=== PATIENT | male | born 1950 | race Caucasian/White ===

== ENCOUNTER → 2020-11-19 | Outpatient (CLI) | payer OTHER | LOC: LAB SHORT 12:20 | DX: R35.0 Frequency of micturition (principal); N39.41 Urge incontinence | CPT/HCPCS: 87086 ==

== ENCOUNTER 2021-01-31 22:24 | Observation (INO) | payer OTHER, MEDICARE ==
[~2021-01-31] VITALS: Ht 175.3 cm; Wt 123.5 kg
[2021-01-31 23:13] LABS: BASOPHILS ABSOLUTE AUTO 0.06 K/mm3 (0.00-0.23); BASOPHILS PERCENT AUTO 1 % (0-2); EOSINOPHILS ABSOLUTE AUTO 0.12 K/mm3 (0.00-0.68); EOSINOPHILS PERCENT AUTO 1 % (0-6); Hematocrit 48.2 % (37.0-53.0); Hemoglobin 16.9 g/dL (13.5-17.5); IMMATURE GRAN ABSOLUTE AUTO 0.02 K/mm3 (0.00-0.10); IMMATURE GRAN PERCENT AUTO 0 % (0-1); LYMPHOCYTES ABSOLUTE AUTO 3.32 K/mm3 (0.84-5.20); LYMPHOCYTES PERCENT AUTO 38 % (21-46); MONOCYTES ABSOLUTE AUTO 1.26 K/mm3 (0.16-1.47); MONOCYTES PERCENT AUTO 15 % (4-13); Mean Corpuscular HGB 30.1 pg (26.0-34.0); Mean Corpuscular HGB Conc 35.1 g/dL (31.5-36.5); Mean Corpuscular Volume 86 fL (80-100); Mean Platelet Volume 9.6 fL (9.1-12.4); NEUTROPHILS ABSOLUTE AUTO 3.91 K/mm3 (1.96-9.15); NEUTROPHILS PERCENT AUTO 45 % (41-73); Platelet Count 246 K/mm3 (150-400); RDW Coefficient Variation 12.7 % (11.7-14.2); RDW Standard Deviation 39.5 fL (35.1-46.3); Red Blood Cell Count 5.62 M/mm3 (4.30-5.90); White Blood Cell Count 8.69 K/mm3 (4.00-11.30)
[2021-01-31 23:35] LABS: Albumin, Blood 3.7 g/dL (3.4-5.0); Bilirubin, Total 0.6 mg/dL (0.1-1.0); Bun/Creatinine Ratio 17.5 (12.0-20.0); Creatinine, Blood 1.26 mg/dL (0.60-1.20); Globulin, Blood 3.7 g/dL (2.2-4.0); Potassium, Blood 3.8 mmol/L (3.5-5.5); Total Protein, Blood 7.4 g/dL (6.4-8.2); Troponin I 0.019 ng/mL (0.000-0.040)
[2021-02-01] MEDS ORDERED: ATOR20 PO (00:06)
[2021-02-01] MEDS ORDERED: OXYB5 PO (00:06)
[2021-02-01] MEDS ORDERED: CLOP75 PO (00:07)
[2021-02-01] MEDS ORDERED: BUPR100 PO (00:08)
[2021-02-01] MEDS ORDERED: TRIA50 PO (00:09)
[2021-02-01] MEDS ORDERED: LEVSOD100 PO (00:09)
[2021-02-01] MEDS ORDERED: LOSA25 PO (00:10)
[2021-02-01 01:39] LABS: Source, Urine Clean Catch
[2021-02-01 01:42] LABS: Bilirubin, Urine Neg (Neg); Blood, Urine 1+ (Neg); Glucose Qualitative, Urine Neg (Neg); Ketones, Urine Neg (Neg); Leukocyte Esterase, Urine Neg (Neg); Nitrite, Urine Neg (Neg); Protein, Urine 1+ (Neg); Urobilinogen, Urine NORM (Normal); pH, Urine 6.5 (5.0-8.0)
[2021-02-01 01:45] LABS: Free Thyroxine 1.1 ng/dL (0.70-1.60); Magnesium, Blood 2.3 mg/dL (1.6-2.4); Thyroid Stimulating Hormone 5.23 uIU/mL (0.360-4.800); Troponin I 0.022 ng/mL (0.000-0.040)
[2021-02-01 01:59] LABS: Creatine Kinase MB 5.4 ng/mL (0.0-3.6); Creatine Kinase MB Index 1.3 (0.0-4.0)
[2021-02-01 02:04] LABS: Appearance, Urine Clear (Clear); Color, Urine Pale Yellow (P-Yellow)
[2021-02-01 02:05] LABS: Bacteria Not Seen /hpf; Red Blood Cells, Urine 0-2 /hpf (0-2); Squamous Epithelial Cells Not Seen /hpf (Few); White Blood Cells, Urine Rare /hpf (0-5)
--- NOTE | 2021-02-01 03:21 | NUR ---
SHIFT SUMMARY PT ARRIVED TO PCU FROM ED AT APPROX 0125. PT AMBULATED INDEPENDENTLY FROM ED STRETCHER TO PCU BED. PT A&OX4. SP02>92% ON RA. PT STATES HE WEARS CPAP AT NIGHT. TELEMETRY READS AFIB, HR 100'S. PT AMBULATED DURING ASSESSMENT TO BATHROOM, SBA, TO VOID. PT DENIES PAIN. PT WAS ACCOMPANIED BY SON TO ROOM. PT ORIENTED TO ROOM AND CALL LIGHT. CALL LIGHT IN REACH. BED IN LOW POSITION.
[2021-02-01 04:02] LABS: BASOPHILS ABSOLUTE AUTO 0.06 K/mm3 (0.00-0.23); BASOPHILS PERCENT AUTO 1 % (0-2); EOSINOPHILS ABSOLUTE AUTO 0.11 K/mm3 (0.00-0.68); EOSINOPHILS PERCENT AUTO 1 % (0-6); Hematocrit 49.4 % (37.0-53.0); Hemoglobin 17.5 g/dL (13.5-17.5); IMMATURE GRAN ABSOLUTE AUTO 0.03 K/mm3 (0.00-0.10); IMMATURE GRAN PERCENT AUTO 0 % (0-1); LYMPHOCYTES ABSOLUTE AUTO 3.48 K/mm3 (0.84-5.20); LYMPHOCYTES PERCENT AUTO 36 % (21-46); MONOCYTES ABSOLUTE AUTO 1.09 K/mm3 (0.16-1.47); MONOCYTES PERCENT AUTO 11 % (4-13); Mean Corpuscular HGB 30.5 pg (26.0-34.0); Mean Corpuscular HGB Conc 35.4 g/dL (31.5-36.5); Mean Corpuscular Volume 86 fL (80-100); Mean Platelet Volume 9.9 fL (9.1-12.4); NEUTROPHILS ABSOLUTE AUTO 4.84 K/mm3 (1.96-9.15); NEUTROPHILS PERCENT AUTO 51 % (41-73); Platelet Count 255 K/mm3 (150-400); RDW Coefficient Variation 12.8 % (11.7-14.2); RDW Standard Deviation 39.8 fL (35.1-46.3); Red Blood Cell Count 5.73 M/mm3 (4.30-5.90); White Blood Cell Count 9.61 K/mm3 (4.00-11.30)
[2021-02-01 04:35] LABS: Alanine Aminotransfer (ALT/SGP 52 U/L (12-78); Albumin, Blood 3.6 g/dL (3.4-5.0); Albumin/Globulin Ratio 0.9 (0.8-1.8); Alk Phos 72 U/L (50-136); Anion Gap 9 mmol/L (6-16); Aspartate Aminotrans (AST/SGOT 37 U/L (12-37); Bilirubin, Total 0.7 mg/dL (0.1-1.0); Blood Urea Nitrogen 19 mg/dL (8-24); Bun/Creatinine Ratio 16.5 (12.0-20.0); CO2, Blood 24 mmol/L (21-32); Calcium, Blood 8.9 mg/dL (8.5-10.1); Chloride, Blood 109 mmol/L (98-108); Creatinine, Blood 1.15 mg/dL (0.60-1.20); Globulin, Blood 3.8 g/dL (2.2-4.0); Glomerular Filtration Rate >60 (60-); Glucose, Blood 79 mg/dL (70-99); Potassium, Blood 3.9 mmol/L (3.5-5.5); Sodium, Blood 142 mmol/L (136-145); Total Protein, Blood 7.4 g/dL (6.4-8.2)
--- NOTE | 2021-02-01 06:14 | NUR ---
SHIFT SUMMARY PT A&OX4. SP02>92% ON RA. PT WORE CPAP FOR APPROX 1 HR THIS EVENING BEFORE REFUSING IT. PT STATES "ITS TOO LOUD". TELEMETRY READS AFIB, HR 80'S-100'S. PT UP TO BATHROOM X2 TO VOID THIS SHIFT, USED URINAL X1. PT DENIES PAIN. POTASSIUM BEGAN INFUSING W/ NS THIS SHIFT, PT C/O OF "ACHING". REQUESTED IV TO STOP. PT STATES, "IF I NEED POTASSIUM, ILL EAT A BANANA." PT DID NOT SLEEP MUCH DURING NIGHT, WATCHING TV AND RESTING IN ROOM. CALL LIGHT IN REACH. WILL GIVE REPORT TO ONCOMING NURSE.
--- NOTE | 2021-02-01 08:53 | NUR ---
PHYSICIAN AT BEDSIDE PHYSICIAN TO D/C PT PENDING ECHO. ORDERS FOR CONSULT AT [facility] POST D/C TO BE PUT IN PER PHYSICIAN.
[2021-02-01 09:17] LABS: Troponin I 0.017 ng/mL (0.000-0.040)
[2021-02-01 09:30] LABS: Creatine Kinase MB 5.4 ng/mL (0.0-3.6); Creatine Kinase MB Index 1.6 (0.0-4.0)
--- NOTE | 2021-02-01 10:58 | NUR ---
PT REFUSAL PT REFUSING TO WEAR TELEMETRY PATCHES AT THIS TIME.
--- NOTE | 2021-02-01 11:11 | NUR ---
Echocardiogram completed.
[2021-02-01] MEDS ORDERED: Lopressor 50 mg50 MG PO (12:55)
[2021-02-01] MEDS ORDERED: XARELTO20 MG PO (12:57)
--- NOTE | 2021-02-01 13:41 | NUR ---
PT DISCHARGE PT DISCHARGED PER PHYSICIAN INSTRUCTION. PT PROVIDED WITH DISHCARGE INSTRUCTION WITH DAUGHTER ON PHONE WELL. PT AND DAUGHTER VERBALIZE UNDERSTANDING REGARDING APT'S TO BE MADE AND MEDICATION INSTRUCTIONS. PT SIGNED DISHCHARGE DOCUMENTATION. IV REMOVED, WNL. TELE REMOVED. PT BROUGHT TO EX-WIFES VEHICLE WITH SENIOR NUCLEAR MEDICINE TECHNOLOGIST BY WHEELCHAIR. PT HAS ALL BELONGINGS WITH HIM EXPECT SHORTS LOST IN ED. PT ADVOCATE AWARE.
== END 2021-02-01 13:42 | disposition home or self-care (01) ==
LOC: ER 22:24 → PCU 22:25 → MEDS 23:58 → ER 23:58 → PCU 02-01 00:34 → ER 02-01 00:37 → PCU 02-01 00:37
PROVIDERS: Emergency Medicine; ADMIT Internal Medicine
DX: I48.91 Unspecified atrial fibrillation (principal); I10 Essential (primary) hypertension; E03.9 Hypothyroidism, unspecified; G47.30 Sleep apnea, unspecified; E78.5 Hyperlipidemia, unspecified; Z79.02 Long term (current) use of antithrombotics/antiplatelets; Z86.73 Personal history of transient ischemic attack (TIA), and cerebral infarction without residual deficits
CPT/HCPCS: 36415; 80053; 81001; 82550; 82553; 83735; 84439; 84443; 84484; 85025; 93005; 93010; 93306; 94660; 94762; 96374; 99285-25; A9270; G0378; J3480; J7050

== ENCOUNTER 2021-08-14 19:34 | Emergency (ER) | payer MEDICARE ==
[~2021-08-14] VITALS: Ht 170.2 cm; Wt 117.9 kg
[~2021-08-14 19:34] MED LIST: ATOR20 PO; BUPR100 PO; CLOP75 PO; LEVSOD100 PO; LOSA25 PO; Lopressor 50 mg50 MG PO; OXYB5 PO; TRIA50 PO; XARELTO20 MG PO
[2021-08-14] MEDS ORDERED: LOSA25 PO (21:25)
[2021-08-14] MEDS ORDERED: EZALLOR SPRINKLE5 MG PO (21:26)
== END 2021-08-14 21:57 | disposition home or self-care (01) ==
LOC: ER 19:34
DX: S00.83XA Contusion of other part of head, initial encounter (principal); M25.511 Pain in right shoulder; I10 Essential (primary) hypertension; E78.5 Hyperlipidemia, unspecified; E03.9 Hypothyroidism, unspecified; I48.91 Unspecified atrial fibrillation; Z79.899 Other long term (current) drug therapy; Z86.73 Personal history of transient ischemic attack (TIA), and cerebral infarction without residual deficits; W01.0XXA Fall on same level from slipping, tripping and stumbling without subsequent striking against object, initial encounter
CPT/HCPCS: 70450; 73030; 99284-25

== ENCOUNTER 2023-10-29 17:17 | Emergency (ER) | payer OTHER ==
[~2023-10-29] VITALS: Ht 170.2 cm; Wt 117.9 kg
[~2023-10-29 17:17] MED LIST changes: +EZALLOR SPRINKLE5 MG PO
[2023-10-29 17:26] VITALS: BP 136/99
== END 2023-10-29 20:30 | disposition home or self-care (01) ==
LOC: ER 17:17
DX: S01.511A Laceration without foreign body of lip, initial encounter (principal); S00.31XA Abrasion of nose, initial encounter; S00.81XA Abrasion of other part of head, initial encounter; I10 Essential (primary) hypertension; I48.91 Unspecified atrial fibrillation; E78.5 Hyperlipidemia, unspecified; E03.9 Hypothyroidism, unspecified; F03.90 Unspecified dementia, unspecified severity, without behavioral disturbance, psychotic disturbance, mood disturbance, and anxiety; Z86.73 Personal history of transient ischemic attack (TIA), and cerebral infarction without residual deficits; Z79.01 Long term (current) use of anticoagulants; Z79.899 Other long term (current) drug therapy; W19.XXXA Unspecified fall, initial encounter
CPT/HCPCS: 12011; 70450; 99284-25

== ENCOUNTER 2024-07-12 13:06 | Emergency (ER) | payer OTHER ==
[~2024-07-12] VITALS: Ht 170.2 cm; Wt 102.1 kg
[2024-07-12 13:15] VITALS: BP 136/67
[2024-07-12] MEDS ORDERED: HYDROcodone 5-APAP 325 TAB PO ONE (13:25)
== END 2024-07-12 14:47 | disposition home or self-care (01) ==
LOC: ER 13:06
DX: S62.614A Displaced fracture of proximal phalanx of right ring finger, initial encounter for closed fracture (principal); S62.616A Displaced fracture of proximal phalanx of right little finger, initial encounter for closed fracture; S00.03XA Contusion of scalp, initial encounter; S00.81XA Abrasion of other part of head, initial encounter; S80.212A Abrasion, left knee, initial encounter; E78.5 Hyperlipidemia, unspecified; E03.9 Hypothyroidism, unspecified; I10 Essential (primary) hypertension; W01.0XXA Fall on same level from slipping, tripping and stumbling without subsequent striking against object, initial encounter; Z86.73 Personal history of transient ischemic attack (TIA), and cerebral infarction without residual deficits
CPT/HCPCS: 70450; 73130; 99284-25; A9270

== ENCOUNTER → 2024-08-16 | Outpatient (CLI) | payer OTHER ==
[2024-08-17 15:14] LABS: Source, Urine Voided
[2024-08-17 17:06] LABS: Appearance, Urine Clear (Clear); Bilirubin, Urine Neg (Neg); Blood, Urine 1+ (Neg); Color, Urine Yellow (P-Yellow); Glucose Qualitative, Urine Neg (Neg); Ketones, Urine Neg (Neg); Leukocyte Esterase, Urine 1+ (Neg); Nitrite, Urine Neg (Neg); Protein, Urine 2+ (Neg); Specific Gravity, Urine 1.025 (1.003-1.022); Urobilinogen, Urine NORM (Normal)
[2024-08-17 17:26] LABS: Bacteria Many /hpf; Squamous Epithelial Cells Rare /hpf (Few)
== END ==
LOC: LAB SHORT 15:11 → LAB 15:11
PROVIDERS: Nurse Practitioner
DX: N39.0 Urinary tract infection, site not specified (principal)
CPT/HCPCS: 81001; 87086

== ENCOUNTER → 2024-08-19 | Outpatient (CLI) | payer OTHER ==
[2024-08-19 15:37] LABS: Source, Urine Voided
[2024-08-19 16:48] LABS: Appearance, Urine Clear (Clear); Bilirubin, Urine Neg (Neg); Blood, Urine 1+ (Neg); Color, Urine Yellow (P-Yellow); Glucose Qualitative, Urine Neg (Neg); Ketones, Urine Neg (Neg); Leukocyte Esterase, Urine Neg (Neg); Nitrite, Urine Neg (Neg); Protein, Urine 1+ (Neg); Specific Gravity, Urine 1.015 (1.003-1.022); Urobilinogen, Urine NORM (Normal)
[2024-08-19 17:01] LABS: Bacteria Not Seen /hpf; Red Blood Cells, Urine 0-2 /hpf (0-2); Squamous Epithelial Cells Not Seen /hpf (Few); White Blood Cells, Urine 0-2 /hpf (0-5)
== END ==
LOC: LAB SHORT 15:34 → LAB 15:34
PROVIDERS: Nurse Practitioner
DX: N39.0 Urinary tract infection, site not specified (principal)
CPT/HCPCS: 81001; 87086

== ENCOUNTER → 2024-08-22 | Outpatient (CLI) | payer MEDICARE ==
[2024-08-22 15:57] LABS: Source, Urine Voided
[2024-08-22 17:32] LABS: Appearance, Urine Clear (Clear); Bilirubin, Urine Neg (Neg); Blood, Urine Neg (Neg); Color, Urine Yellow (P-Yellow); Glucose Qualitative, Urine Neg (Neg); Ketones, Urine Neg (Neg); Leukocyte Esterase, Urine Neg (Neg); Nitrite, Urine Neg (Neg); Protein, Urine 1+ (Neg); Urobilinogen, Urine NORM (Normal)
== END ==
LOC: LAB SHORT 15:52 → LAB 15:52
PROVIDERS: Nurse Practitioner
DX: N39.0 Urinary tract infection, site not specified (principal)
CPT/HCPCS: 87086

== ENCOUNTER 2024-08-26 17:25 | Emergency (ER) | payer MEDICARE, OTHER ==
[~2024-08-26] VITALS: Ht 170.2 cm; Wt 127.0 kg
[2024-08-26 18:43] LABS: Albumin, Blood 3.2 g/dL (3.4-5.0); Albumin/Globulin Ratio 0.9 (0.8-1.8); Bilirubin, Total 0.4 mg/dL (0.1-1.0); Bun/Creatinine Ratio 19.4 (12.0-20.0); Calcium, Blood 8.4 mg/dL (8.5-10.1); Creatinine, Blood 1.08 mg/dL (0.60-1.20); Globulin, Blood 3.7 g/dL (2.2-4.0); Potassium, Blood 4.3 mmol/L (3.5-5.5); Total Protein, Blood 6.9 g/dL (6.4-8.2)
[2024-08-26 19:38] LABS: BASOPHILS ABSOLUTE AUTO 0.06 K/mm3 (0.00-0.23); BASOPHILS PERCENT AUTO 1 % (0-2); EOSINOPHILS ABSOLUTE AUTO 0.13 K/mm3 (0.00-0.68); EOSINOPHILS PERCENT AUTO 2 % (0-6); Hematocrit 44.5 % (37.0-53.0); Hemoglobin 15.2 g/dL (13.5-17.5); IMMATURE GRAN ABSOLUTE AUTO 0.03 K/mm3 (0.00-0.10); IMMATURE GRAN PERCENT AUTO 0 % (0-1); LYMPHOCYTES ABSOLUTE AUTO 2.88 K/mm3 (0.84-5.20); LYMPHOCYTES PERCENT AUTO 39 % (21-46); MONOCYTES ABSOLUTE AUTO 1.04 K/mm3 (0.16-1.47); MONOCYTES PERCENT AUTO 14 % (4-13); Mean Corpuscular HGB 30.5 pg (26.0-34.0); Mean Corpuscular HGB Conc 34.2 g/dL (31.5-36.5); Mean Corpuscular Volume 89 fL (80-100); Mean Platelet Volume 9.4 fL (9.1-12.4); NEUTROPHILS ABSOLUTE AUTO 3.28 K/mm3 (1.96-9.15); NEUTROPHILS PERCENT AUTO 44 % (41-73); Platelet Count 223 K/mm3 (150-400); RDW Coefficient Variation 12.7 % (11.7-14.2); RDW Standard Deviation 41.7 fL (35.1-46.3); Red Blood Cell Count 4.99 M/mm3 (4.30-5.90); White Blood Cell Count 7.42 K/mm3 (4.00-11.30)
[2024-08-26 20:00] VITALS: BP 156/63
[2024-08-26 20:01] LABS: Source, Urine Clean Catch
[2024-08-26 20:04] LABS: Bilirubin, Urine Neg (Neg); Blood, Urine Neg (Neg); Glucose Qualitative, Urine Neg (Neg); Ketones, Urine Neg (Neg); Leukocyte Esterase, Urine 1+ (Neg); Nitrite, Urine Neg (Neg); Protein, Urine Neg (Neg); Specific Gravity, Urine 1.015 (1.003-1.022); Urobilinogen, Urine NORM (Normal)
[2024-08-26 20:12] LABS: Appearance, Urine Clear (Clear); Color, Urine Pale Yellow (P-Yellow)
[2024-08-26 20:13] LABS: Bacteria Mod /hpf; Red Blood Cells, Urine 0-2 /hpf (0-2); Squamous Epithelial Cells Few /hpf (Few)
== END 2024-08-26 21:00 | disposition home or self-care (01) ==
LOC: ER 17:25
PROVIDERS: Emergency Medicine
DX: R40.4 Transient alteration of awareness (principal); R29.6 Repeated falls; E78.5 Hyperlipidemia, unspecified; E03.9 Hypothyroidism, unspecified; I10 Essential (primary) hypertension; I48.91 Unspecified atrial fibrillation; Z86.73 Personal history of transient ischemic attack (TIA), and cerebral infarction without residual deficits; Z79.899 Other long term (current) drug therapy
CPT/HCPCS: 51701; 51798; 70450; 80053; 81001; 85025; 87086; 93005; 93010; 99285-25

== ENCOUNTER 2024-08-29 04:39 | Emergency (ER) | payer MEDICARE ==
[~2024-08-29] VITALS: Ht 170.2 cm; Wt 127.0 kg
[2024-08-29 04:47] VITALS: BP 144/78
[2024-08-30] MEDS ORDERED: Zoloft50 MG PO (13:54)
[2024-08-30] MEDS ORDERED: ACIDOPHILUS1 EAC3 (13:54)
[2024-08-30] MEDS ORDERED: GEMTESA75 MG (13:55)
== END 2024-08-29 09:36 | disposition home or self-care (01) ==
LOC: ER 04:39
DX: S70.02XA Contusion of left hip, initial encounter (principal); W18.30XA Fall on same level, unspecified, initial encounter; Z79.899 Other long term (current) drug therapy; E78.5 Hyperlipidemia, unspecified; E03.9 Hypothyroidism, unspecified; I10 Essential (primary) hypertension; I48.91 Unspecified atrial fibrillation
CPT/HCPCS: 73502; 99283-25

== ENCOUNTER 2024-08-29 12:11 | Emergency (ER) | payer MEDICARE ==
[~2024-08-29] VITALS: Ht 177.8 cm; Wt 172.4 kg
[2024-08-29] MEDS ORDERED: Metoprolol Tartrate 50 MG Tab PO ONE (13:30)
[2024-08-29 14:58] LABS: Influenza A, PCR NEGATIVE (NEGATIVE); Influenza B, PCR NEGATIVE (NEGATIVE); Resp Syncytial Virus, PCR NEGATIVE (NEGATIVE); SARS-Cov-2 (COVID-19) PCR, MMC NEGATIVE (NEGATIVE)
--- NOTE | 2024-08-29 21:25 | NUR ---
Call back Pt's daughter and GD were present at bedside. Pt's heartrate was up before agency sales representative arrives. Built rapport with pt and family. Those present began to have a lightened deamoner as interventions were employed. Verbal prayer extended and daughter was tearful. Pt's heat was at 65 when agency sales representative stepped out. All voice gratefulness for visit. Reported to Nursing Product Development Intern.
--- NOTE | 2024-08-29 21:27 | NUR ---
Call back - Pt's heart rate was up as daughter and GD were at bedside. Rapport was built and spirit's lightened as interventions were employed. Words of comfort and encouragement extended before a verbal supplication was employed. Daughter was tearful at the action. Pt's heartrate was at 65 BPM when ramp agent left. Family voiced gratefulness for visit.
[2024-08-29] MEDS ORDERED: QUEtiapine Fumarate 50 MG TAB PO ONE (22:10)
[2024-08-30] MEDS ORDERED: Rivaroxaban 10 MG Tab PO ONE (11:05)
[2024-08-30] MEDS ORDERED: NS 1,000 ML IV SCH (11:40)
[2024-08-30] MEDS ORDERED: FLU VACC TS2024-25(6MOS UP)/PF 45 MCG/0.5 ML SYRINGE IM SCH (13:25)
[2024-08-30] MEDS ORDERED: Zoloft50 MG PO (13:54)
[2024-08-30] MEDS ORDERED: ACIDOPHILUS1 EAC3 (13:54)
[2024-08-30] MEDS ORDERED: GEMTESA75 MG (13:55)
[2024-08-30 15:27] VITALS: BP 136/74
== END 2024-08-30 15:00 ==
LOC: ER 12:11
PROVIDERS: Physician Assistant
DX: R53.1 Weakness (principal); M79.605 Pain in left leg; R53.81 Other malaise; E78.5 Hyperlipidemia, unspecified; E03.9 Hypothyroidism, unspecified; I10 Essential (primary) hypertension; S70.02XA Contusion of left hip, initial encounter; I48.91 Unspecified atrial fibrillation; F03.90 Unspecified dementia, unspecified severity, without behavioral disturbance, psychotic disturbance, mood disturbance, and anxiety; Z79.890 Hormone replacement therapy; Z79.899 Other long term (current) drug therapy; Z79.02 Long term (current) use of antithrombotics/antiplatelets; Z86.73 Personal history of transient ischemic attack (TIA), and cerebral infarction without residual deficits; Z11.52 Encounter for screening for COVID-19; W18.30XA Fall on same level, unspecified, initial encounter
CPT/HCPCS: 0241U; 73502; 93971; 94660; 96360; 97110; 97116; 97162; 99283-25; 99285-25; A9270; J7030

== ENCOUNTER 2024-09-21 12:20 | Emergency (ER) | payer MEDICARE ==
[~2024-09-21] VITALS: Ht 170.2 cm; Wt 68.5 kg
[~2024-09-21 12:20] MED LIST changes: +ACIDOPHILUS1 EAC3; +GEMTESA75 MG; +Zoloft50 MG PO
[2024-09-21] MEDS ORDERED: Diltiazem HCl 5 MG / ML 5ML Vial IV ONE ×2 (13:20→15:05)
[2024-09-21 13:53] LABS: BASOPHILS ABSOLUTE AUTO 0.04 K/mm3 (0.00-0.23); BASOPHILS PERCENT AUTO 0 % (0-2); EOSINOPHILS ABSOLUTE AUTO 0.11 K/mm3 (0.00-0.68); EOSINOPHILS PERCENT AUTO 1 % (0-6); Hematocrit 47.1 % (37.0-53.0); Hemoglobin 15.8 g/dL (13.5-17.5); IMMATURE GRAN ABSOLUTE AUTO 0.04 K/mm3 (0.00-0.10); IMMATURE GRAN PERCENT AUTO 0 % (0-1); LYMPHOCYTES ABSOLUTE AUTO 2.51 K/mm3 (0.84-5.20); LYMPHOCYTES PERCENT AUTO 26 % (21-46); MONOCYTES ABSOLUTE AUTO 1.51 K/mm3 (0.16-1.47); MONOCYTES PERCENT AUTO 16 % (4-13); Mean Corpuscular HGB 29.8 pg (26.0-34.0); Mean Corpuscular HGB Conc 33.5 g/dL (31.5-36.5); Mean Corpuscular Volume 89 fL (80-100); Mean Platelet Volume 9.3 fL (9.1-12.4); NEUTROPHILS ABSOLUTE AUTO 5.35 K/mm3 (1.96-9.15); NEUTROPHILS PERCENT AUTO 56 % (41-73); Platelet Count 347 K/mm3 (150-400); RDW Coefficient Variation 12.5 % (11.7-14.2); RDW Standard Deviation 40.5 fL (35.1-46.3); Red Blood Cell Count 5.31 M/mm3 (4.30-5.90); White Blood Cell Count 9.56 K/mm3 (4.00-11.30)
[2024-09-21 14:10] LABS: Albumin, Blood 2.8 g/dL (3.4-5.0); Albumin/Globulin Ratio 0.5 (0.8-1.8); Bilirubin, Total 0.5 mg/dL (0.1-1.0); Bun/Creatinine Ratio 25.7 (12.0-20.0); Calcium, Blood 9.4 mg/dL (8.5-10.1); Creatinine, Blood 1.05 mg/dL (0.60-1.20); Globulin, Blood 5.2 g/dL (2.2-4.0); Potassium, Blood 5.3 mmol/L (3.5-5.5)
[2024-09-21] MEDS ORDERED: Toprol Xl25 MG PO (15:58)
[2024-09-21] MEDS ORDERED: CEPH500 PO (15:58)
[2024-09-21 17:27] VITALS: BP 122/56
== END 2024-09-21 18:30 | disposition home or self-care (01) ==
LOC: ER 12:20
PROVIDERS: Emergency Medicine
DX: I48.91 Unspecified atrial fibrillation (principal); L03.115 Cellulitis of right lower limb; I10 Essential (primary) hypertension; E03.9 Hypothyroidism, unspecified; E78.5 Hyperlipidemia, unspecified; F03.90 Unspecified dementia, unspecified severity, without behavioral disturbance, psychotic disturbance, mood disturbance, and anxiety; Z86.73 Personal history of transient ischemic attack (TIA), and cerebral infarction without residual deficits; Z79.01 Long term (current) use of anticoagulants; Z79.890 Hormone replacement therapy; Z79.899 Other long term (current) drug therapy
CPT/HCPCS: 80053; 85025; 96374; 96376; 99285-25

== ENCOUNTER 2024-11-29 10:01 | Emergency (ER) | payer MEDICARE ==
[~2024-11-29] VITALS: Ht 170.2 cm; Wt 117.9 kg
[~2024-11-29 10:01] MED LIST changes: +CEPH500 PO; +Toprol Xl25 MG PO
[2024-11-29 10:42] LABS: BASOPHILS ABSOLUTE AUTO 0.04 K/mm3 (0.00-0.23); BASOPHILS PERCENT AUTO 1 % (0-2); EOSINOPHILS ABSOLUTE AUTO 0.07 K/mm3 (0.00-0.68); EOSINOPHILS PERCENT AUTO 1 % (0-6); Hemoglobin 15.6 g/dL (13.5-17.5); IMMATURE GRAN ABSOLUTE AUTO 0.03 K/mm3 (0.00-0.10); IMMATURE GRAN PERCENT AUTO 0 % (0-1); LYMPHOCYTES ABSOLUTE AUTO 3.94 K/mm3 (0.84-5.20); LYMPHOCYTES PERCENT AUTO 46 % (21-46); MONOCYTES PERCENT AUTO 13 % (4-13); Mean Corpuscular HGB 29.7 pg (26.0-34.0); Mean Corpuscular HGB Conc 33.9 g/dL (31.5-36.5); Mean Corpuscular Volume 88 fL (80-100); Mean Platelet Volume 9.3 fL (9.1-12.4); NEUTROPHILS ABSOLUTE AUTO 3.39 K/mm3 (1.96-9.15); NEUTROPHILS PERCENT AUTO 40 % (41-73); Platelet Count 231 K/mm3 (150-400); RDW Coefficient Variation 15.1 % (11.7-14.2); RDW Standard Deviation 48.2 fL (35.1-46.3); Red Blood Cell Count 5.25 M/mm3 (4.30-5.90); White Blood Cell Count 8.57 K/mm3 (4.00-11.30)
[2024-11-29 11:08] LABS: Albumin, Blood 3.3 g/dL (3.4-5.0); Albumin/Globulin Ratio 0.8 (0.8-1.8); Bilirubin, Total 0.5 mg/dL (0.1-1.0); Bun/Creatinine Ratio 22.1 (12.0-20.0); Calcium, Blood 9.2 mg/dL (8.5-10.1); Creatinine, Blood 1.13 mg/dL (0.60-1.20); Globulin, Blood 4.4 g/dL (2.2-4.0); Potassium, Blood 5.1 mmol/L (3.5-5.5); Total Protein, Blood 7.7 g/dL (6.4-8.2)
[2024-11-29 11:28] VITALS: BP 150/82
== END 2024-11-29 13:40 | disposition home or self-care (01) ==
LOC: ER 10:01
PROVIDERS: Student in an Organized Health Care Education/Training Program
DX: S46.912A Strain of unspecified muscle, fascia and tendon at shoulder and upper arm level, left arm, initial encounter (principal); X50.0XXA Overexertion from strenuous movement or load, initial encounter
CPT/HCPCS: 71046; 73030; 80053; 84484; 85025; 93005; 93010; 99284-25

== ENCOUNTER 2025-01-29 12:54 | Emergency (ER) | payer MEDICARE ==
[~2025-01-29] VITALS: Ht 170.2 cm; Wt 117.9 kg
[2025-01-29 13:40] VITALS: BP 116/67
== END 2025-01-29 16:35 | disposition other institution (70) ==
LOC: ER 12:54
DX: S30.0XXA Contusion of lower back and pelvis, initial encounter (principal); I10 Essential (primary) hypertension; I48.91 Unspecified atrial fibrillation; E78.5 Hyperlipidemia, unspecified; E03.9 Hypothyroidism, unspecified; F03.90 Unspecified dementia, unspecified severity, without behavioral disturbance, psychotic disturbance, mood disturbance, and anxiety; Z86.73 Personal history of transient ischemic attack (TIA), and cerebral infarction without residual deficits; Z79.01 Long term (current) use of anticoagulants; Z79.890 Hormone replacement therapy; Z79.899 Other long term (current) drug therapy; W05.0XXA Fall from non-moving wheelchair, initial encounter
CPT/HCPCS: 70450; 99284-25

== ENCOUNTER 2025-04-18 10:03 | Emergency (ER) | payer OTHER ==
[~2025-04-18] VITALS: Ht 170.2 cm; Wt 127.0 kg
[2025-04-18 10:48] LABS: BASOPHILS ABSOLUTE AUTO 0.05 K/mm3 (0.00-0.23); BASOPHILS PERCENT AUTO 1 % (0-2); EOSINOPHILS ABSOLUTE AUTO 0.01 K/mm3 (0.00-0.68); EOSINOPHILS PERCENT AUTO 0 % (0-6); Hematocrit 42.1 % (37.0-53.0); Hemoglobin 14.2 g/dL (13.5-17.5); IMMATURE GRAN ABSOLUTE AUTO 0.05 K/mm3 (0.00-0.10); IMMATURE GRAN PERCENT AUTO 1 % (0-1); LYMPHOCYTES ABSOLUTE AUTO 2.54 K/mm3 (0.84-5.20); LYMPHOCYTES PERCENT AUTO 24 % (21-46); MONOCYTES ABSOLUTE AUTO 1.43 K/mm3 (0.16-1.47); MONOCYTES PERCENT AUTO 13 % (4-13); Mean Corpuscular HGB 31.3 pg (26.0-34.0); Mean Corpuscular HGB Conc 33.7 g/dL (31.5-36.5); Mean Corpuscular Volume 93 fL (80-100); Mean Platelet Volume 9.7 fL (9.1-12.4); NEUTROPHILS ABSOLUTE AUTO 6.58 K/mm3 (1.96-9.15); NEUTROPHILS PERCENT AUTO 62 % (41-73); Platelet Count 222 K/mm3 (150-400); RDW Coefficient Variation 13.2 % (11.7-14.2); RDW Standard Deviation 44.9 fL (35.1-46.3); Red Blood Cell Count 4.53 M/mm3 (4.30-5.90); White Blood Cell Count 10.66 K/mm3 (4.00-11.30)
[2025-04-18 11:14] LABS: Albumin, Blood 3.6 g/dL (3.4-5.0); Albumin/Globulin Ratio 0.8 (0.8-1.8); Bilirubin, Total 0.7 mg/dL (0.1-1.0); Bun/Creatinine Ratio 21.2 (12.0-20.0); Calcium, Blood 9.5 mg/dL (8.5-10.1); Creatinine, Blood 1.37 mg/dL (0.60-1.20); Globulin, Blood 4.3 g/dL (2.2-4.0); Potassium, Blood 4.8 mmol/L (3.5-5.5); Total Protein, Blood 7.9 g/dL (6.4-8.2)
[2025-04-18] MEDS ORDERED: NS 1,000 ML IV SCH (11:40)
[2025-04-18] MEDS ORDERED: Norvasc2.5 MG PO (12:36)
[2025-04-18 12:42] LABS: Source, Urine Clean Catch
[2025-04-18 13:12] LABS: Appearance, Urine Hazy (Clear); Bilirubin, Urine Neg (Neg); Blood, Urine 5+ (Neg); Color, Urine Yellow (P-Yellow); Glucose Qualitative, Urine Neg (Neg); Ketones, Urine Neg (Neg); Leukocyte Esterase, Urine 3+ (Neg); Nitrite, Urine Neg (Neg); Protein, Urine 2+ (Neg); Urobilinogen, Urine NORM (Normal)
[2025-04-18] MEDS ORDERED: EUTHYROX125 MCG PO (13:12)
[2025-04-18] MEDS ORDERED: Crestor40 MG PO (13:12)
[2025-04-18] MEDS ORDERED: CENTRUM SILVER1 EAC2 PO (13:13)
[2025-04-18] MEDS ORDERED: SENNA4.4 MG/2.5 PO (13:13)
[2025-04-18 13:28] LABS: Bacteria Many /hpf; Renal Epithelial Few /hpf (0-Rare); Squamous Epithelial Cells Few /hpf (Few); White Blood Cells, Urine 50-100 /hpf (0-5)
[2025-04-18] MEDS ORDERED: CefTRIAXone Sodium 1,000 MG in NS 100 ML IV ONE (13:30)
[2025-04-18 14:00] VITALS: BP 143/61
[2025-04-18] MEDS ORDERED: CEFP200 PO (14:31)
== END 2025-04-18 17:18 | disposition home or self-care (01) ==
LOC: ER 10:03
PROVIDERS: Emergency Medicine
DX: N39.0 Urinary tract infection, site not specified (principal); E86.1 Hypovolemia; E78.5 Hyperlipidemia, unspecified; E03.9 Hypothyroidism, unspecified; I10 Essential (primary) hypertension; I48.91 Unspecified atrial fibrillation; F03.90 Unspecified dementia, unspecified severity, without behavioral disturbance, psychotic disturbance, mood disturbance, and anxiety; Z86.73 Personal history of transient ischemic attack (TIA), and cerebral infarction without residual deficits; Z79.890 Hormone replacement therapy; Z79.01 Long term (current) use of anticoagulants; Z79.899 Other long term (current) drug therapy
CPT/HCPCS: 70450; 80053; 81001; 85025; 87077; 87086; 87186; 93005; 93010; 96361; 96365; 99285-25; A6590; J0696; J7030

== ENCOUNTER 2025-04-18 18:54 | Inpatient (IN) | payer OTHER ==
[~2025-04-18] VITALS: Ht 188 cm; Wt 122.5 kg
[~2025-04-18 18:54] MED LIST changes: +CEFP200 PO; +CENTRUM SILVER1 EAC2 PO; +Crestor40 MG PO; +EUTHYROX125 MCG PO; +Norvasc2.5 MG PO; +SENNA4.4 MG/2.5 PO
[2025-04-18] MEDS ORDERED: NS 1,000 ML IV SCH (19:10)
[2025-04-18] MEDS ORDERED: Acetaminophen 500 MG Tab PO ONE (19:55)
[2025-04-18] MEDS ORDERED: Losartan Potassium 50 MG Tab PO SCH (21:00)
[2025-04-18] MEDS ORDERED: BuPROPion HCl SR 100 MG TabCR PO SCH (21:00)
[2025-04-18] MEDS ORDERED: Apixaban 5 MG Tab PO SCH (21:00)
[2025-04-18] MEDS ORDERED: Acetaminophen 500 MG Tab PO PRN (21:00)
[2025-04-18] MEDS ORDERED: Metoprolol Tartrate 25 MG Tab PO SCH (21:00)
[2025-04-18] MEDS ORDERED: Magnesium Hydroxide Conc 10 ML UDC PO PRN (21:05)
[2025-04-18] MEDS ORDERED: Albuterol HFA200 ACT/6.7 GM INH INH PRN (21:10)
[2025-04-18] MEDS ORDERED: CefTRIAXone Sodium 1,000 MG in NS 100 ML IV SCH (21:30)
[2025-04-18 22:35] VITALS: BP 105/67
[2025-04-18] MEDS ORDERED: NS 250 ML IV PRN (22:35)
[2025-04-19 05:50] LABS: BASOPHILS ABSOLUTE AUTO 0.05 K/mm3 (0.00-0.23); BASOPHILS PERCENT AUTO 1 % (0-2); EOSINOPHILS ABSOLUTE AUTO 0.02 K/mm3 (0.00-0.68); EOSINOPHILS PERCENT AUTO 0 % (0-6); Hematocrit 42.2 % (37.0-53.0); Hemoglobin 14.4 g/dL (13.5-17.5); IMMATURE GRAN ABSOLUTE AUTO 0.04 K/mm3 (0.00-0.10); IMMATURE GRAN PERCENT AUTO 0 % (0-1); LYMPHOCYTES ABSOLUTE AUTO 3.19 K/mm3 (0.84-5.20); LYMPHOCYTES PERCENT AUTO 30 % (21-46); MONOCYTES ABSOLUTE AUTO 2.23 K/mm3 (0.16-1.47); MONOCYTES PERCENT AUTO 21 % (4-13); Mean Corpuscular HGB 31.4 pg (26.0-34.0); Mean Corpuscular HGB Conc 34.1 g/dL (31.5-36.5); Mean Corpuscular Volume 92 fL (80-100); Mean Platelet Volume 9.2 fL (9.1-12.4); NEUTROPHILS ABSOLUTE AUTO 5.19 K/mm3 (1.96-9.15); NEUTROPHILS PERCENT AUTO 48 % (41-73); Platelet Count 201 K/mm3 (150-400); RDW Coefficient Variation 13.2 % (11.7-14.2); RDW Standard Deviation 44.1 fL (35.1-46.3); Red Blood Cell Count 4.59 M/mm3 (4.30-5.90); White Blood Cell Count 10.72 K/mm3 (4.00-11.30)
[2025-04-19] MEDS ORDERED: Levothyroxine Sodium 0.125 MG Tab PO SCH (06:00)
--- NOTE | 2025-04-19 07:13 | NUR ---
Shift Summary Pt admitted from ED for sepsis r/t UTI. He is from [facility] and was experiencing increased confusion and lethargy. Upon arrival pt told me he has not ambulated in a few days, I said we are going to keep him bedrest for now until he can be evaluated by PT. He came up on 2L of O2 and wears a CPAP at night with no O2 bleed in. On cont. O2 monitoring, no desat events. On tele running afib 80-120, no events. Pt states no chest pain, discomfort or dizzyness. Pt has a purewick for incontinent voids. He had one large loose incontinent BM. He is AOx3, cooperative with care. Rcving IV ABX. He is currently on RA this morning with SPO2> 94%
[2025-04-19 07:20] LABS: Albumin, Blood 3.1 g/dL (3.4-5.0); Albumin/Globulin Ratio 0.7 (0.8-1.8); Bilirubin, Total 0.4 mg/dL (0.1-1.0); Bun/Creatinine Ratio 16.5 (12.0-20.0); Calcium, Blood 8.6 mg/dL (8.5-10.1); Creatinine, Blood 1.33 mg/dL (0.60-1.20); Globulin, Blood 4.5 g/dL (2.2-4.0); Potassium, Blood 4.1 mmol/L (3.5-5.5); Thyroid Stimulating Hormone 1.88 uIU/mL (0.360-4.800); Total Protein, Blood 7.6 g/dL (6.4-8.2)
[2025-04-19 07:25] VITALS: BP 123/67
[2025-04-19] MEDS ORDERED: Sertraline HCl 50 MG Tab PO SCH (09:00)
[2025-04-19] MEDS ORDERED: Atorvastatin 10 MG Tab PO SCH (09:00)
[2025-04-19] MEDS ORDERED: Lactobacil 2-S.Thermo-Bifido 1 1 Cap PO SCH (09:00)
[2025-04-19] MEDS ORDERED: Multivitamins/Minerals 1 Tab PO SCH (09:00)
[2025-04-19] MEDS ORDERED: Metoprolol Tartrate 50 MG Tab PO SCH (09:00)
--- NOTE | 2025-04-19 10:10 | NUR ---
ELEVATED HR PT HAD A TEMPERATURE. PT HAD RECEIVED METOPROLOL EARLIER. MEDICATED WITH TYLNOL BEFORE CALLING DR RIVERO FOR ADDITIONAL RATE CONTROL. TEMOERATURE DECREASED TO 98.3. HERT RATE DECREASED WELL. CARE ONGOING.
[2025-04-19 12:33] VITALS: BP 102/74
[2025-04-19 16:27] VITALS: BP 118/71
--- NOTE | 2025-04-19 18:35 | NUR ---
NOTE PT ALERT, PLEASANT COOPERATIVE. PT UP IN RECLINER WITH JET LIFT. PT UNABLE TO GET HIS LEGS TO THE SIDE OF THE BED. PT DAUGHTER RELATES THAT HE ISN'T THE MOST MOTIVATED PERSON. HE FREQUENTLY REFUSES TO GET UP. AT THE [facility], ON A GOOD DAY, HE IS A TWO PERSON WITH [facility] FOR TRANSFER. TLELMETRY AFIB. RATE CONTROLLED THIS AFTERNOON. HR 90-110. VSS. EATING WELL. CARE ONGOING.
[2025-04-19 19:43] VITALS: BP 133/114
--- NOTE | 2025-04-19 21:52 | NUR ---
NOTIFIED BY DIRECTOR SALES THAT PT HAD 3 BEAT RUN OF 35 BPM, THEN CONVERTED FROM AFIB TO SINUS RHYTHM @ 82 BPM.
[2025-04-19 23:27] VITALS: BP 114/77
--- NOTE | 2025-04-20 04:23 | NUR ---
SHIFT SUMMARY NOC PT A/O X 3. FORGETFUL AT TIMES, BUT COOPERATIVE WITH CARE. VSS. PT ON TELE AFIB IN 90'S, HAD A 3 BEAT RUN @ 35 BPM, THEN CONVERTED TO SINUS RHYTHM IN 70'S AND BACK TO AFIB IN 90'S.RHYTHM STRIP AND TELE MONITOR REVIEWED. PT RECEIVING IV ABX FOR UTI. PT LIFT PT WITH JET TO AND FROM CHAIR AND BED. PT USING CPAP FOR SLEEP SPO2 >92%. PUREWICK IN PLACE FOR INCONTINENCE. PT EXPECTED TO DISCHARGE BACK TO THE [facility] TODAY. PT CURRENTLY RESTING WITH BED IN LOWEST POSITION, AND CALL LIGHT WITHIN REACH.
[2025-04-20 04:41] VITALS: BP 109/66
[2025-04-20 07:23] VITALS: BP 103/74
[2025-04-20] MEDS ORDERED: AMOCLA875 PO (14:35)
[2025-04-20] MEDS ORDERED: ELIQUIS5 M2 PO (14:35)
[2025-04-20] MEDS ORDERED: METOPROLOL TART50 M6 PO (14:36)
[2025-04-20] MEDS ORDERED: LACT PO (14:36)
[2025-04-20] MEDS ORDERED: SERT50 PO (14:37)
[2025-04-20 15:20] VITALS: BP 116/76
--- NOTE | 2025-04-20 16:48 | NUR ---
DUE TO THE PATIENT NOT LEAVING TODAY DUE TO [facility]UES AND [facility]; CALLED AND NOTIFIED DR. RIVERO AND INQUIRED ABOUT ANTIBIOTIC COVERAGE NOW THAT HE NO LONGER HAS IV ACCESS. PER DR. RIVERO TO HAVE PATIENT TAKE AUGMENTIN 875 MG ONE CAPSULE TWICE DAILY UNTIL HE IS DISCHARGED TOMORROW AROUND NOON.
--- NOTE | 2025-04-20 17:34 | NUR ---
TEAM FOREMAN STUDENT NOTE: PT IS A&0X3. TELE AND IVS WERE REMOVED IN PREPRATION FOR DISCHARGE. HOWEVER WHEN TRANSPORT ARRIVED, THEY ONLY HAD A WHEELCHAIR. PT REQUIRES A GURNEY. PT WAS TO RETURN TO THE [facility] THE [facility] BUT THE [facility] STATED IT WAS TOO LATE IN THE DAY TO ACCEPT IT. THE PLAN IS TO DISCHARGE TOMORROW AT NOON. ABX HAVE BEEN CHANGED TO ORAL MEDICATION. PT USES JET LIFT TO GO FROM BED TO CHAIR. USES CPAP FOR SLEEP SP02 >92%. PUREWICK IN PLACE FOR INCONTIENCE.BED IS IN THE LOWEST POSITION AND CALL LIGHT WITHIN REACH.
--- NOTE | 2025-04-20 18:08 | NUR ---
THERE ARE MOBILITY CONCERNS WITH THE PATIENT. PATIENT SHOWS LACK OF MOTIVATION TO GET UP OUT OF BED, BUT WILL VOICE HE GETS UP WITH HIS WALKER AND WALKS. PATIENT BARELY MOVES HIS LEGS OR PARTICIPATES WITH ROLLING WITH CARE WITHIN THE BED. ATTEMPT TO GET THE PATIENT UP YESTERDAY PER FOREIGN EXCHANGE DEALER AND THE PATIENT WAS NOT ABLE TO SIT AT EDGE OF BED OR MOVE LEGS. ATTEMPT TO GET PATIENT UP THIS EVENING FOR DINNER EVEN AFTER PLAN AND AGREEANCE TO GET UP WHEN HIS DAUGHTER SHALA WAS PRESENT, BUT WHEN CAME TIME REFUSED TO GET UP AND REQUEST TO EAT DINNER IN BED.
[2025-04-20 20:05] VITALS: BP 132/78
[2025-04-20] MEDS ORDERED: Amoxicillin/Clavulanate K 875 MG Tab PO SCH (21:00)
[2025-04-21 02:28] VITALS: BP 129/72
[2025-04-21 07:23] VITALS: BP 147/93
[2025-04-21 09:52] LABS: CORONAVIRUS COVID-19 AG Negative (NEGATIVE)
--- NOTE | 2025-04-21 10:34 | NUR ---
1038 NURSE TO NURSE REPORT WITH SOULEYMANE AT THE [facility] EXPRESSED CONCERNS WITH MOBILITY AND STRENGTH AND HIS BASELINE MOBILITY.
--- NOTE | 2025-04-21 12:19 | NUR ---
DISCHARGE NOTE: [facility]. WAS ABLE TO GET THE PATIENT INTO THE WHEELCHAIR WITH MAX ASSIST; PATIENT WAS ABLE TO STAND PIVOT WITH THE MAX ASSIST INTO THE WHEELCHAIR TOLERATED. WENT OVER DISCHARGE WITH PATIENT AND RETURNED BELONGINGS. NO SIGNS OR SYMPTOMS OF DISTRESS WITH DISCHARGE.
== END 2025-04-21 12:27 | disposition home or self-care (01) | DRG 871 ==
LOC: ER 18:54 → MEDS 21:00
PROVIDERS: Internal Medicine; ADMIT Internal Medicine
DX: A41.59 Other Gram-negative sepsis (principal); G92.8 Other toxic encephalopathy; N39.0 Urinary tract infection, site not specified; I48.20 Chronic atrial fibrillation, unspecified; F03.90 Unspecified dementia, unspecified severity, without behavioral disturbance, psychotic disturbance, mood disturbance, and anxiety; I12.9 Hypertensive chronic kidney disease with stage 1 through stage 4 chronic kidney disease, or unspecified chronic kidney disease; N18.30 Chronic kidney disease, stage 3 unspecified; G47.30 Sleep apnea, unspecified; E78.5 Hyperlipidemia, unspecified; Z86.73 Personal history of transient ischemic attack (TIA), and cerebral infarction without residual deficits; E03.9 Hypothyroidism, unspecified; Z87.442 Personal history of urinary calculi; Z79.890 Hormone replacement therapy; Z79.899 Other long term (current) drug therapy
CPT/HCPCS: 36415; 80053; 83605; 84443; 85025; 87040; 87426-QW; 93005; 93010; 94660; 94760; 94762; 96360; 96361; 99285-25; A9270; J0696; J7030

== ENCOUNTER 2025-06-23 19:26 | Emergency (ER) | payer OTHER ==
[~2025-06-23] VITALS: Ht 170.2 cm; Wt 108.9 kg
[~2025-06-23 19:26] MED LIST changes: +AMOCLA875 PO; +ELIQUIS5 M2 PO; +LACT PO; +METOPROLOL TART50 M6 PO; +SERT50 PO
[2025-06-23 23:00] VITALS: BP 145/57
== END 2025-06-23 23:00 | disposition home or self-care (01) ==
LOC: ER 19:26
DX: Z04.3 Encounter for examination and observation following other accident (principal); I10 Essential (primary) hypertension; E78.5 Hyperlipidemia, unspecified; I48.91 Unspecified atrial fibrillation; Z59.89 Other problems related to housing and economic circumstances; Z79.01 Long term (current) use of anticoagulants; Z79.899 Other long term (current) drug therapy
CPT/HCPCS: 70450; 99283-25